=== PATIENT | female | born 2000 | race Caucasian/White ===

== ENCOUNTER 2019-08-17 12:16 | Emergency (ER) | payer OTHER, SELFPAY ==
[2019-08-17 12:24] VITALS: BP 114/64; PULSE 78; RESP 15; TEMP 36.6; O2SAT 96; BMI 25.4
--- NOTE | 2019-08-17 12:54 | ED_ITS ---
HPI - Back Pain/Injury General Chief Complaint: Back Pain/Injury Stated Complaint: Lower back pain giving out Time Seen by Provider: 08/17/19 12:54 Source: patient Mode of arrival: Ambulatory Limitations: no limitations History of Present Illness HPI Narrative: This is a 19-year-old female comes to the emergency department with complaint of back pain. Patient states yesterday she was doing her PT exam and had a little bit of left low back pain. Today she was bending over and picking up about 20 lb and felt sudden pain and felt like her back gave out. She has pain radiating from the low back to about mid thigh on the back. Patient has a little bit of tingling on that side. She denies any other numbness or tingling elsewhere. She denies any weakness. She denies any loss of bowel or bladder control. She has not had similar symptoms in the past. She states she is otherwise healthy with no other medical issues. She has not taken any medications today. Patient states her sister and father both have sciatica. She does lift weights regularly. Related Data Previous Rx's Medication Instructions Recorded cyclobenzaprine 10 mg PO TID PRN #7 tab 08/17/19 ibuprofen 800 mg PO Q8H PRN #20 tab 08/17/19 Allergies Allergy/AdvReac Type Severity Reaction Status Date / Time No Known Drug Allergies Allergy Verified 08/17/19 12:24 Review of Systems Review of Systems ROS Unobtainable: All systems reviewed & are unremarkable except as noted in HPI and below Constitutional Constitutional: Denies chills and Denies fever(s) Gastrointestinal Gastrointestinal: Denies fecal incontinence Genitourinary Genitourinary: Denies urinary incontinence Musculoskeletal Musculoskeletal: Reports as per HPI, Denies abnormal gait, Reports back pain, Denies limited range of motion, Denies muscle weakness, Denies numbness, Reports radiating pain into limb (left side) and Reports tingling Integumentary/Breasts Skin/Breast: Denies erythema and Denies rash Neurologic Neurologic: Denies abnormal gait, Denies numbness and Reports tingling PFSH Social History Smoking Status: Never smoker Social History (Updated 08/17/19 @ 13:20 by Ivana Hercules DO) marital status: Smoking Status: Never smoker Exam Narrative Exam Narrative: GENERAL: Alert and oriented x three, well-nourished, well- appearing female in mild distress. Patient looks more anxious than uncomfortable. HEENT: Head normocephalic, atraumatic, EOMI, pupils reactive, face symmetric, moist mucous membranes NECK: Supple, full range of motion CARDIOVASCULAR: Regular rate and rhythm without murmurs, rubs or gallops. RESPIRATORY: Breath sounds equal bilaterally, no wheezes rales or rhonchi. ABDOMEN: Soft, nontender. Normoactive bowel sounds all 4 quadrants. No guarding or rebound, rigidity, no mass : No CVA tenderness BACK: No cervical, thoracic or lumbar vertebral point tendernes, patient has mild tenderness at L3/4 range adjacent to lumbar spine, + muscle tightness on left lower back. Patient has normal range of motion. Patient's gait is normal. Rectal exam is deferred. Muscle strength is 5/5 in lower extremities, DTRs are 2/4 and lower extremities. Dorsalis pedis and tibialis pulses are 2+ and lower extremities. Sensation is intact in the lower extremities. Straight leg test is negative bilaterally. EXTREMITIES: Normal range of motion, no clubbing or edema. Neurovascularly intact NEUROLOGICAL: Cranial nerves II through XII grossly intact. Moving all extremities SKIN: Warm, dry, no petechiae, no rashes or lesions. Initial Vital Signs Initial Vital Signs: Vital Signs Temperature 97.9 F 08/17/19 12:24 Pulse Rate 78 08/17/19 12:24 Respiratory Rate 15 08/17/19 12:24 Blood Pressure 114/64 08/17/19 12:24 Pulse Oximetry 96 08/17/19 12:24 Course Orders Ordered: Discontinued Medications Cyclobenzaprine HCl (Flexeril) 10 mg PO NOW ONE Stop: 08/17/19 13:13 Last Admin: 08/17/19 13:18 Dose: 10 mg Documented by: HOMER Ibuprofen (Advil) 800 mg PO NOW ONE Stop: 08/17/19 13:13 Last Admin: 08/17/19 13:19 Dose: 800 mg Documented by: HOMER Vital Signs Vital signs: Vital Signs - 8 hr 08/17/19 12:24 Temperature 97.9 F Pulse Rate 78 Respiratory Rate 15 Blood Pressure 114/64 Pulse Oximetry 96 MDM - Back Pain/Injury Lab Data Attestation: I reviewed the patient's lab results. Labs: Point of Care Testing Test Results Negative Urine Dip Bedside Urine Glucose Negative Bedside Urine Bilirubin - Negative Bedside Urine Ketone - Negative Urine Specific [place] 1.015 Bedside Urine Occult Blood - Negative Bedside Urine pH 6.0 Bedside Urine Protein - Negative Bedside Urine Urobilinogen - Negative Bedside Urine Nitrite - Negative Bedside Urine Leukocytes - Negative Esterase MDM Narrative Medical decision making narrative: Patient does not have any red flag symptoms. She has possible exacerbating factors which likely irritated and then her symptoms today. Patient actually has very good range of motion and muscle strength with minimal pain on of al. Patient was given ibuprofen and a dose of cyclobenzaprine in the department with plan for short course of treatment and is to decrease her activity until improved. Discharge Plan Departure Patient Disposition: Home Clinical Impression: Strain of lumbar region Qualifiers: Encounter type: initial encounter Qualified Code(s): S39.012A - Strain of muscle, fascia and tendon of lower back, initial encounter Sciatica Qualifiers: Laterality: left Qualified Code(s): M54.32 - Sciatica, left side Discharge Date/Time: 08/17/19 13:28 Instructions: DI for Back Pain With Sciatica Activity Restrictions/Additional Instructions: Follow-up with primary care in the next 7-10 days if her symptoms are not improving. Continue ibuprofen up to 800 mg every 8 hours as needed. You may take up to a 1000 mg every 8 hours as needed with ibuprofen. Take muscle relaxant 1 every 8 hours as needed, this medication can make you sleepy do not drive, perform hazardous activities or make any major decisions while taking it. Return to the emergency department for fevers greater 100.4 F, new or worsening back pain, new loss of bowel or bladder control, new weakness, numbness, inability to lift or move your lower extremities or other new or concerning symptoms. Prescriptions: New ibuprofen 800 mg tablet 800 mg PO Q8H PRN (Reason: pain) Qty: 20 RF: 0 cyclobenzaprine 10 mg tablet 10 mg PO TID PRN (Reason: muscle spasm) Qty: 7 RF: 0 Stand Alone Forms: Work Release Note
[2019-08-17] MEDS: CYCLOBENZAPRINE 10 MG TABLET PO (13:18)
[2019-08-17] MEDS: IBUPROFEN 400 MG TABLET 800 MG PO (13:19)
== END 2019-08-17 13:28 | disposition home or self-care (01) ==
PROVIDERS: Emergency Provider Emergency Medicine
DX: S39.012A Strain of muscle, fascia and tendon of lower back, initial encounter (principal); M54.32 Sciatica, left side; X50.0XXA Overexertion from strenuous movement or load, initial encounter
CPT/HCPCS: 81003; 81025; 99283